=== PATIENT | male | born 1945 | race Caucasian/White ===

== ENCOUNTER 2019-11-05 21:57 | Inpatient (IN) | payer MEDICAID, MEDICARE ==
[~2019-11-05] VITALS: Ht 175.3 cm; Wt 96.5 kg
--- NOTE | 2019-11-05 22:17 | NUR ---
PT BIB CARE FLIGHT. WAS AT [facility] WHEN HE HAD A WITNESSED SZ. WAS GIVEN 2MG ATIVAN. BLOOD DRAW AT [facility] SHOWED A SUB THERAPUETIC DILANTIN LEVEL. THE [place] [facility] DOES NOT CARRY DILANTIN AND IT WAS DECIDED THAT THE PT BE TRANSFERED TO [facility]. 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 PT IS CONNECTED TO [employer]WORK [employer]ACH[employer], [employer], AND IS RESTING IN [facility]
[2019-11-05] MEDS ORDERED: PHENYTOIN SODIUM 1,000 MG in SODIUM CHLORIDE 0.9% 100 ML IVPB ONE (22:30)
[2019-11-05] MEDS ORDERED: FILTER 0.22 MICRON IV ONE (22:30)
--- NOTE | 2019-11-05 23:04 | NUR ---
PT RESTING IN [facility]. WATCHING TV. NAD. VSS. REPORT GIVEN TO VALERIE RN
[2019-11-05] MEDS ORDERED: WARFARIN (23:10)
[2019-11-05] MEDS ORDERED: DILANTIN (23:10)
[2019-11-05] MEDS ORDERED: SIMVASTATIN (23:10)
[2019-11-05] MEDS ORDERED: ADVAIR (23:10)
--- NOTE | 2019-11-05 23:14 | NUR ---
report received from deil dimas.
--- NOTE | 2019-11-05 23:21 | NUR ---
registration at bedside at this time.
--- NOTE | 2019-11-05 23:34 | NUR ---
hospitalist at bedside, pt watching tv. resps even and unlabored. all monitors in place. call light within reach.
--- NOTE | 2019-11-05 23:58 | NUR ---
URINE COLLECTED AND SENT.
--- NOTE | 2019-11-05 23:59 | NUR ---
REPORT GIVEN TO CULLEN ESPOSITO. ALL QUESTIONS ANSWERED.
[2019-11-06] MEDS ORDERED: POLYETHYLENE GLYCOL 17 GM PACKET PO PRN
[2019-11-06] MEDS ORDERED: ONDANSETRON ODT 4 MG PO PRN
[2019-11-06] MEDS ORDERED: BISACODYL 10 MG SUPP PR PRN
[2019-11-06 00:13] LABS: CULTURE INDICATED? YES; MICROSCOPIC INDICATED
[2019-11-06 00:19] LABS: INTERNATIONAL NORMALIZED RATIO 1.06 (0.93-1.1); PROTHROMBIN TIME 11.2 Seconds (9.6-11.5)
[2019-11-06 00:21] VITALS: BP 154/80
[2019-11-06 01:02] VITALS: BP 130/85
[2019-11-06 05:47] LABS: BASOPHILS # (AUTO) 0.11 x10^3/uL (0-0.1); BASOPHILS % (AUTO) 1 % (0-1); EOSINOPHILS # (AUTO) 0.04 x10^3/uL (0-0.4); EOSINOPHILS % (AUTO) 0 % (1-7); LYMPHOCYTES # (AUTO) 1.75 x10^3/uL (1-3.4); LYMPHOCYTES % (AUTO) 16 % (22-44); MD NO; MEAN CORPUSCULAR HEMOGLOBIN 29.3 pg (27.5-34.5); MEAN CORPUSCULAR HGB CONC 33.1 g/dL (33.2-36.2); MEAN CORPUSCULAR VOLUME 88.4 fL (81-97); MONOCYTES # (AUTO) 0.57 x10^3/uL (0.2-0.8); MONOCYTES % (AUTO) 5 % (2-9); NEUTROPHILS # (AUTO) 8.62 x10^3/uL (1.8-6.8); NEUTROPHILS % (AUTO) 78 % (42-75); PLATELET COUNT 220 x10^3/uL (130-400); RED BLOOD COUNT 5.22 x10^6/uL (4.38-5.82); RED CELL DISTRIBUTION WIDTH 14.2 % (9.4-14.8)
[2019-11-06 05:56] LABS: ANION GAP 6 mmol/L (5-15); CALCIUM 8.6 mg/dL (8.5-10.1); CHLORIDE 103 mmol/L (98-107)
[2019-11-06 05:57] LABS: CREATININE 0.81 mg/dL (0.7-1.3)
[2019-11-06 07:43] VITALS: BP 127/84
[2019-11-06] MEDS ORDERED: PLEASE ENTER HEIGHT MC SCH (09:00)
[2019-11-06] MEDS: PHENYTOIN 100 MG CAPSULE PO SCH ×3 (09:58→20:42)
[2019-11-06] MEDS: SENNA/DOCUSATE TABLET PO SCH (09:58)
[2019-11-06] MEDS: CEFTRIAXONE PMX 1GM/50ML 50 ML IV SCH (10:17)
[2019-11-06 13:07] VITALS: BP 134/92
[2019-11-06 19:25] VITALS: BP 132/89
[2019-11-07 00:32] VITALS: BP 133/83
[2019-11-07 07:04] VITALS: BP 119/80
[2019-11-07 07:49] LABS: ANION GAP 5 mmol/L (5-15); CALCIUM 8.9 mg/dL (8.5-10.1); CHLORIDE 102 mmol/L (98-107); CREATININE 0.76 mg/dL (0.7-1.3)
[2019-11-07 07:56] LABS: BASOPHILS # (AUTO) 0.03 x10^3/uL (0-0.1); BASOPHILS % (AUTO) 0 % (0-1); EOSINOPHILS # (AUTO) 0.15 x10^3/uL (0-0.4); EOSINOPHILS % (AUTO) 2 % (1-7); LYMPHOCYTES # (AUTO) 1.73 x10^3/uL (1-3.4); LYMPHOCYTES % (AUTO) 20 % (22-44); MD NO; MEAN CORPUSCULAR HEMOGLOBIN 29.4 pg (27.5-34.5); MEAN CORPUSCULAR VOLUME 89.2 fL (81-97); MEAN PLATELET VOLUME 7.8 fL (7.4-10.4); MONOCYTES # (AUTO) 0.26 x10^3/uL (0.2-0.8); MONOCYTES % (AUTO) 3 % (2-9); NEUTROPHILS # (AUTO) 6.31 x10^3/uL (1.8-6.8); NEUTROPHILS % (AUTO) 75 % (42-75); PLATELET COUNT 201 x10^3/uL (130-400); RED BLOOD COUNT 5.52 x10^6/uL (4.38-5.82)
[2019-11-07] MEDS: PHENYTOIN 100 MG CAPSULE PO SCH ×3 (08:56→20:33)
[2019-11-07] MEDS: SENNA/DOCUSATE TABLET PO SCH (08:56)
[2019-11-07] MEDS: ACETAMINOPHEN 325 MG TABLET PO PRN (08:56)
[2019-11-07] MEDS: ENOXAPARIN 40 MG/0.4 ML SQ SCH (08:56)
[2019-11-07] MEDS: CEFTRIAXONE PMX 1GM/50ML 50 ML IV SCH (10:00)
[2019-11-07] MEDS ORDERED: MORPHINE SULFATE 4 MG/ML, 1ML IVPush ONE (12:30)
[2019-11-07 13:33] VITALS: BP 111/68
[2019-11-07] MEDS: SODIUM CHLORIDE 0.9% 1,000 ML IV SCH (14:23)
[2019-11-07] MEDS: CIPROFLOXACIN 500 MG TABLET PO SCH ×2 (14:24→20:33)
[2019-11-07] MEDS: CYCLOBENZAPRINE 10 MG TABLET PO PRN (17:10)
[2019-11-07 18:45] VITALS: BP 116/74
[2019-11-08 01:39] VITALS: BP 148/96
[2019-11-08] MEDS: SODIUM CHLORIDE 0.9% 1,000 ML IV SCH (03:08)
[2019-11-08 06:05] LABS: CALCIUM 8.3 mg/dL (8.5-10.1); CHLORIDE 105 mmol/L (98-107)
[2019-11-08 06:08] LABS: ANION GAP 7 mmol/L (5-15); CREATININE 0.77 mg/dL (0.7-1.3)
[2019-11-08 06:34] VITALS: BP 133/89
[2019-11-08] MEDS: ENOXAPARIN 40 MG/0.4 ML SQ SCH (08:53)
[2019-11-08] MEDS: PHENYTOIN 100 MG CAPSULE PO SCH ×3 (08:53→20:06)
[2019-11-08] MEDS: SENNA/DOCUSATE TABLET PO SCH (08:53)
[2019-11-08] MEDS: CIPROFLOXACIN 500 MG TABLET PO SCH (08:53)
[2019-11-08] MEDS: CEFTRIAXONE PMX 1GM/50ML 50 ML IV SCH (09:43)
[2019-11-08] MEDS: ACETAMINOPHEN 325 MG TABLET PO PRN (09:43)
[2019-11-08] MEDS ORDERED: ASPI-496 PO (10:42)
[2019-11-08] MEDS ORDERED: LOSA100T14 PO (10:43)
[2019-11-08] MEDS ORDERED: MAGN400T9 PO (10:45)
[2019-11-08 12:00] VITALS: BP 124/87
[2019-11-08 18:24] VITALS: BP 129/87
[2019-11-08] MEDS: CEFTAZIDIME 2,000 MG in SODIUM CHLORIDE 0.9% 50 ML IV SCH (20:06)
[2019-11-08] MEDS: CYCLOBENZAPRINE 10 MG TABLET PO PRN (20:06)
[2019-11-09 00:59] VITALS: BP 122/83
[2019-11-09] MEDS: CEFTAZIDIME 2,000 MG in SODIUM CHLORIDE 0.9% 50 ML IV SCH ×2 (03:56→11:37)
[2019-11-09 06:27] VITALS: BP 129/85
[2019-11-09] MEDS: ENOXAPARIN 40 MG/0.4 ML SQ SCH (07:55)
[2019-11-09] MEDS: PHENYTOIN 100 MG CAPSULE PO SCH ×2 (07:55→15:53)
[2019-11-09] MEDS: SENNA/DOCUSATE TABLET PO SCH (07:55)
[2019-11-09 12:05] VITALS: BP 149/92
[2019-11-09] MEDS: CYCLOBENZAPRINE 10 MG TABLET PO PRN (12:41)
[2019-11-09] MEDS ORDERED: CYCL-259 PO (14:19)
[2019-11-09] MEDS ORDERED: FLUT1DIS IH (14:19)
[2019-11-09] MEDS ORDERED: SIMV10TA18 PO (14:19)
[2019-11-09] MEDS ORDERED: PHEN100C PO (14:19)
[2019-11-09] MEDS ORDERED: CEFT2PIG IV (14:19)
[2019-11-09] MEDS ORDERED: ALBU18HF IH (14:19)
[2019-11-09] MEDS ORDERED: LOSA25TA12 PO (14:22)
== END 2019-11-09 17:33 | DRG 100 ==
LOC: ED 22:40 → EDIP 23:56 → 4EST 11-06 00:13
PROVIDERS: ADMIT Internal Medicine; ATTEND Internal Medicine
PROC: 0T2BX0Z Change Drainage Device in Bladder, External Approach (ICD-10-PCS; principal; 2019-11-08)
DX: G40.409 Other generalized epilepsy and epileptic syndromes, not intractable, without status epilepticus (principal); J96.21 Acute and chronic respiratory failure with hypoxia; Z16.23 Resistance to quinolones and fluoroquinolones; I69.154 Hemiplegia and hemiparesis following nontraumatic intracerebral hemorrhage affecting left non-dominant side; E87.1 Hypo-osmolality and hyponatremia; N39.0 Urinary tract infection, site not specified; J44.9 Chronic obstructive pulmonary disease, unspecified; D75.1 Secondary polycythemia; E78.5 Hyperlipidemia, unspecified; I10 Essential (primary) hypertension; I69.120 Aphasia following nontraumatic intracerebral hemorrhage; Z93.59 Other cystostomy status; Z71.6 Tobacco abuse counseling; Z72.0 Tobacco use
CPT/HCPCS: 36415; 80048; 80185; 81001; 85025; 85610; 87077; 87086; 87186; 93005; 96365; 96375; G0378; J0696; J0713; J1165; J1650; J2270; J7030